=== PATIENT | male | born 1980 | race Caucasian/White ===

== ENCOUNTER 2016-07-18 14:59 | Inpatient (IN) ==
[2016-07-18] MEDS ORDERED: MORPHINE 2 MG/1 ML SYRINGE IV STA (16:20)
[2016-07-18] MEDS ORDERED: ONDANSETRON 4 MG/2 ML VIAL IV STA (16:20)
[2016-07-18] MEDS ORDERED: SODIUM CHLORIDE 0.9% 1,000 ML IV STA (16:20)
[2016-07-18] MEDS ORDERED: MORPHINE 2 MG/1 ML SYRINGE ONE (16:26)
[2016-07-18] MEDS ORDERED: ONDANSETRON 4 MG/2 ML VIAL ONE (16:26)
[2016-07-18 16:36] LABS: Basophils # 0.1 10*3/uL (0.0-0.2); Basophils % 0.4 % (0.0-0.8); Eosinophils # 0.3 10*3/uL (0.0-0.87); Eosinophils % 1.6 % (0.00-10.9); Hematocrit 48.6 VOL% (42.0-52.0); Hemoglobin 17.3 GM/DL (14.0-18.0); Immature Granulocytes % 0.5 %; Immature Granulocytes Absolute 0.09 #; Lymphocytes % 11.4 % (21.2-54.2); Mean Corpuscular HGB Conc 35.6 GM/DL (32-36); Mean Corpuscular Hemoglobin 32 PG (27-34); Mean Corpuscular Volume 88.8 FL (87-102); Mean Platelet Volume 11.6 FL (9.6-12.0); Monocytes % 5.5 % (1.7-12.7); Neutrophils # 14.3 10*3/uL (1.4-7.4); Neutrophils % 80.6 % (38.7-73.9); Platelet Count 235 T/CUMM (130-400); Red Blood Count 5.47 MC/CUMM (3.8-5.5); Red Cell Distribution Width 12.3 % (9.3-17.3); White Blood Count 17.7 T/CUMM (4-12)
[2016-07-18 17:06] LABS: Albumin 4.4 G/DL (3.4-5.0); Bilirubin,Total 0.6 MG/DL (0.2-1.0); Calcium 9.2 MG/DL (8.5-10.1); Osmolality,Calculated 277.5 MOS/KG (273-304); Potassium 4.3 MMOL/L (3.5-5.1)
[2016-07-18 17:29] LABS: Apearance,Urine CLEAR (Clear); Bilirubin,Urine Negative (Negative); Blood, Urine Negative (Negative); Glucose,Urine (UA) Negative (Negative); Hyaline Casts,Urine 2 /LPF (0-3); Ketones,Urine 5 mg/dL (Negative); Mucus,Urine Many /LPF (Occasional); Nitrite,Urine Negative (Negative); Protein,Urine Negative; RBC,Urine 1 /HPF (0-4); Urine Color Yellow (Yellow); Urine Specific Gravity 1.027 (1.001-1.035); Urine Urobilinogen < 2.0 EU/DL (0.2-1.0); WBC,Urine 2 /HPF (0-6)
--- NOTE | 2016-07-18 18:20 | CT Report ---
CT abdomen pelvis Indication: Abdominal pain, epigastric area Comparison: None available Technique: Axial CT imaging of the abdomen and pelvis is performed with intravenous and oral contrast. Contrast dose is 100 cc of Omnipaque 350. Findings: Cardiac and lung bases are within normal limits CT abdomen: The liver spleen pancreas and adrenal glands are normal in size and enhancement. No evidence of focal lesion is demonstrated in these solid organs. Kidneys are normal in size and enhancement. No evidence of hydronephrosis or nephrolithiasis is seen. The bowel caliber is normal and no wall thickening or adjacent inflammatory change is seen. No evidence of free air is present. Small amount of fluid is seen around the appendix. Appendix caliber appears within normal limits at 6.3 mm although there are slight enhancement of the wall. CT pelvis: Small amount of fluid is seen in the pelvis. The pelvic bowel appears within normal limits. Bladder shows no evidence of abnormality. The pelvic organs show no evidence of abnormality Impression: Small amount of fluid in the appendix and the wall enhances slightly. The appendix caliber appears within normal limits. This could represent early appendicitis. This CT exam was performed using one or more the following dose reduction techniques: Automated exposure control, adjustment of the MA and/or KV according to patient size, or use of iterative reconstruction technique. PROCEDURE INTERPRETED AT [facility] DEPARTMENT OF RADIOLOGY Final Report Signed by: Dr. Tang Colon
[2016-07-18] MEDS ORDERED: ONDANSETRON 4 MG/2 ML VIAL IV PRN (18:54)
[2016-07-18] MEDS ORDERED: MORPHINE 2 MG/1 ML SYRINGE IV PRN (18:54)
[2016-07-18] MEDS ORDERED: ACETAMINOPHEN 325 MG TABLET PO PRN (18:54)
--- NOTE | 2016-07-18 19:11 | Emergency Department Note ---
Amaury Gardner Kasabria, am scribing for, and in the presence of, Brigette Light MD 16:31. Kuldeep Gardner Kathryn, MD, personally performed the services described in this documentation, ascribed by Dada Rebolledo in my presence, and it is both accurate and complete 911 . Arrival - Arrival Chief Complaint: Abdominal / Flank Pain Stated Complaint: stomach pain/vomitting ED Nursing Triage Note: C/O HAVING GENERALIZED ABD.PAIN THAT STARTED TODAY AROUND 0630, STATES " FEELS LIKE I ATE RAZOR BLADES", DENIES HAVING INCREASE TEMP.,. + CHILLS., + NASUEA., + VOMITING., + DIARRHEA., LAST MEAL WAS 2030 LAST EVENING Mode of Arrival: Ambulatory Limitations: No Limitations Source: Patient - History of Present Illness HPI Narrative: This is a 36 y/o white male presenting to the ED with c/o nausea, vomiting, abdominal pain, and diarrhea that onset this morning at 0600. Pt states he has never experienced this type of pain before. He described it as feeling like razor blades cutting into his stomach. He has had several episodes of vomiting and diarrhea with the last episode being before he arrived to the ED. Pt's last meal was at 2030 last night. He states he has had increased temperature and chills. Mother states the pt has not seen a primary in over 20 years and is aware of any medical problems that he may have. Consistency: constant Severity: moderate Allergies/Adverse Reactions: Allergies Allergy/AdvReac Type Severity Reaction Status Date / Time No Known Allergies Allergy Unverified 07/18/16 15:05 Review of System - Review of System 12 point system: reviewed and no additional remarkable complaints except as stated - Review of System Constitutional: Present: chills, fever (low grade ) Eyes: Absent: vision change Head/Ears/Nose/Throat: Absent: earache, nasal drainage Respiratory: Absent: cough, wheezing Cardiovascular: Absent: chest pain Gastrointestinal: Present: abdominal pain (epigastric and lower abdominal ), nausea, vomiting, diarrhea. Absent: hematemesis, hematochezia Genitourinary male: Absent: dysuria Musculoskeletal: Absent: arm pain, back pain Skin: Absent: rash Neurological: Absent: headache, weakness, confusion, vertigo Psychiatric: Absent: anxiety Endocrine: Absent: fatigue Hematological/Lymphatic: Absent: easy bleeding Allergic/Immunologic: Absent: facial swelling Medical,Surgical,& Family Hx - Social History Smoking Status: Smoker, status unknown Frequency of Alcohol Use: None Type of Drug Use: Marijuana Exam Vital Signs: Vital Signs Temperature 99.0 F 07/18/16 16:53 Pulse Rate 58 L 07/18/16 16:57 Respiratory Rate 20 07/18/16 16:57 Blood Pressure 141/81 07/18/16 16:57 O2 Sat by Pulse Oximetry 98 07/18/16 16:57 - General General appearance: alert, in no apparent distress - Head Head exam: Present: atraumatic, normocephalic, normal inspection - Eye Eye exam: Present: normal appearance, PERRL, EOMI - ENT ENT exam: Present: normal exam, normal oropharynx, mucous membranes moist, TM's normal bilaterally, normal external ear exam - Neck Neck exam: Present: normal inspection, full ROM, trachea midline. Absent: tenderness - Chest Chest inspection: Present: normal inspection, symmetric chest wall rise. Absent : tenderness - Respiratory Respiratory exam: Present: normal lung sounds bilaterally - Cardiovascular Cardiovascular exam: Present: regular rate, normal rhythm, normal heart sounds - Abdominal Exam Abdominal exam: Present: soft, tenderness (diffuse tenderness; pain is worse in the epigastric region ), normal bowel sounds. Absent: distention, guarding, rebound - Extremities Exam Extremities exam: Present: normal inspection, full ROM, normal capillary refill. Absent: tenderness, pedal edema, calf tenderness - Back Exam Back exam: Present: normal inspection, full ROM. Absent: tenderness - Neurological Exam Neurological exam: Present: alert, oriented X3, CN II-XII intact, normal gait, reflexes normal - Psychiatric Psychiatric exam: Present: normal affect, normal mood - Skin Skin exam: Present: warm, dry, intact, normal color. Absent: rash, diaphoresis Course - Consultations Consultation #1: Will admit to Dr. Valdez of General Surgery for acute appy. Plan for OR in AM. Results - Labs CBC & BMP: 07/18/16 16:23 07/18/16 16:23 - Diagnostic Findings Procedure: CT Abdomen and Pelvis: report reviewed by me (Small amt of fluid in the appendix and the wall enhances slightly. The appendix caliber appears within normal limits. This could represent an early appy.) Disposition Clinical Impression: Acute appendicitis Case discussed with: patient, patient's family Disposition: Still a Patient Condition: Stable Time of Disposition: 18:59
--- NOTE | 2016-07-18 20:02 | General Surg History&Physical ---
Assessment and Plan (1) Acute appendicitis Status: Acute Assessment and plan: Impression: Acute appendicitis Plan: We will admit and start IV antibiotics. Discussed options with the patient had like to proceed with appendectomy. Will plan for laparoscopic appendectomy in the morning. The procedure and how it is performed and the anticipated recovery were discussed. Risks of the procedure including bleeding , infection, damage to surrounding structures, need for further surgery were all discussed in detail and he wants to proceed. Current Visit: Yes History of Present Illness Chief complaint: Abdominal pain History of present illness: Mr. Boles is a 36 year old male awoke this morning at 6 AM with mild periumbilical abdominal pain that has since progressively worsened and migrated to the right lower quadrant. He denies any fever or chills at home. No nausea or vomiting. He denies chest pain shortness of breath or change in bowel habits. Allergies Allergy/AdvReac Type Severity Reaction Status Date / Time No Known Allergies Allergy Unverified 07/18/16 15:05 Medical,Surgical,& Family Hx - Medical History Medical History: noncontributory (Denies any past history) - Social History Smoking Status: Smoker, status unknown Frequency of Alcohol Use: None Type of Drug Use: Marijuana Exam - Constitutional Vitals: Period Temp Pulse Resp BP Sys/Shaffer Pulse Ox Last 24 Hr 63 20 113/63 99 General appearance: no acute distress - Head Head exam: Present: normocephalic - ENT Mouth exam: Present: normal external inspection - Neck Neck exam: Present: normal inspection - Respiratory Respiratory exam: Present: clear to auscultation bilaterally - Cardiovascular Cardiovascular exam: Present: RRR - GI/Abdominal GI/Abdominal exam: Present: soft (Very tender to palpation in the right lower quadrant. No peritoneal signs.) - Extremities Exam Extremities exam: Present: normal inspection - Back Exam Back exam: Present: normal inspection - Neurological Exam Neurological exam: Present: alert, oriented X3 Speech: Present: normal - Skin Skin exam: Present: normal color 12 point system: reviewed and no additional remarkable complaints except as stated Results - Labs CBC & BMP: 07/18/16 16:23 07/18/16 16:23 Lab Results: I have reviewed the past 24 hour labs
[2016-07-18] MEDS: DEXTROSE 5% LACTATED RINGERS 1,000 ML IV SCH (20:40)
[2016-07-18] MEDS: metroNIDAZOLE INJ 500 MG in PREMIX 1 EACH IV SCH (20:57)
[2016-07-18] MEDS: PIPERACILLIN/TAZOBACTAM 3,375 MG in SODIUM CHLORIDE 0.9% 100 ML IV SCH (22:42)
[2016-07-19] MEDS: DEXTROSE 5% LACTATED RINGERS 1,000 ML IV SCH ×2 (03:09→21:40)
[2016-07-19] MEDS: metroNIDAZOLE INJ 500 MG in PREMIX 1 EACH IV SCH ×3 (04:44→21:30)
[2016-07-19] MEDS: PIPERACILLIN/TAZOBACTAM 3,375 MG in SODIUM CHLORIDE 0.9% 100 ML IV SCH ×3 (07:05→23:08)
[2016-07-19] MEDS ORDERED: BUPIVACAINE MPF 0.25% /EPI 30 ML VIAL ONE (08:00)
[2016-07-19] MEDS ORDERED: TISSUE ADHESIVE 1 EACH APPLICATOR TOP ONE (08:00)
[2016-07-19] MEDS ORDERED: LIDOCAINE 1%/EPI INJ 20 ML VIAL ONE (08:00)
[2016-07-19] MEDS: PANTOPRAZOLE 40 MG TABLET PO SCH (08:19)
[2016-07-19] MEDS ORDERED: NEOSTIGMINE 10 MG/10 ML VIAL ONE (08:47)
[2016-07-19] MEDS ORDERED: SUCCINYLCHOLINE 200 MG/10 ML VIAL ONE (08:47)
[2016-07-19] MEDS ORDERED: ROCURONIUM 100 MG/10 ML VIAL IV ONE (08:47)
[2016-07-19] MEDS ORDERED: PROPOFOL 200 MG/20 ML VIAL IV ONE (08:47)
[2016-07-19] MEDS ORDERED: GLYCOPYRROLATE 0.4 MG/2 ML VIAL ONE (08:47)
[2016-07-19] MEDS ORDERED: ONDANSETRON 4 MG/2 ML VIAL ONE ×2 (08:47→10:34)
[2016-07-19] MEDS ORDERED: KETOROLAC 30 MG/1 ML VIAL ONE (08:47)
[2016-07-19] MEDS ORDERED: LIDOCAINE 100 MG/5 ML SYRINGE ONE (08:47)
[2016-07-19] MEDS ORDERED: SUGAMMADEX 200 MG/2 ML VIAL IV ONE (09:34)
[2016-07-19] MEDS ORDERED: fentaNYL 100 MCG/2 ML VIAL ONE (09:53)
[2016-07-19] MEDS ORDERED: DESFLURANE 1 UNIT/15 MINUTE INH ONE (09:53)
[2016-07-19] MEDS ORDERED: MIDAZOLAM 2 MG/2 ML VIAL ONE (09:53)
[2016-07-19] MEDS ORDERED: ACETAMINOPHEN 1,000 MG/100 ML VIAL IV ONE (09:54)
[2016-07-19] MEDS ORDERED: ONDANSETRON 4 MG/2 ML VIAL IV PRN (09:58)
[2016-07-19] MEDS ORDERED: HYDROmorphone 2 MG/1 ML VIAL IV PRN (09:58)
[2016-07-19] MEDS ORDERED: LACTATED RINGERS 1,000 ML IV SCH (10:00)
--- NOTE | 2016-07-19 10:41 | Anesthesia Post-Op ---
Anesthesia Post OP - Post Ansesthetic Evaluation Patient seen in post op: Yes Resp: within normal limits CV: within normal limits Mental: within normal limits Temp: within normal limits [id number]: within normal limits Nausea and Vomiting: within normal limits Pain: within normal limits
--- NOTE | 2016-07-19 11:14 | Operative Note ---
Date of procedure: 07/19/16 Pre-op diagnosis: Early acute appendicitis Post-op diagnosis: same (Hyperemic appearance of the appendix) Procedure: Procedure performed: Laparoscopic appendectomy Procedure in detail: After informed consent was obtained, patient was taken operating suite placed upon the operating table. After general anesthesia induced Montero catheter placed and abdomen was prepped and draped in usual sterile fashion. After procedural pause local anesthetic infiltrated skin and subcutaneous tissue above the umbilicus. Incision was made and dissection carried down through skin and soft tissue. Fascia grasped with Haskins's and elevated. Fascial incision was made. Abdominal cavity was entered bluntly. Finger sweep revealed no adhesions. White trocar placed under direct visualization. Pneumoperitoneum achieved. The camera inserted bowel mesentery inspected and found to be free of any violation. Patient was placed in Trendelenburg position rotated to the left. Suprapubic and left lower quadrant 5 mm trochars were placed under visualization. Camera was moved to the left lower quadrant in the right lower quadrant a nondilated appendix was identified. It was mildly hyperemic. There was no separation or any significant inflammation seen. A window was created at the base of the appendix and the appendiceal base transected using NEGRA stapling device with vascular load. Mesoappendix was transected in the same fashion. The appendix was placed in an Endo Catch sac and removed to the White trocar site. Pneumoperitoneum reachieved. The right lower quadrant thoroughly irrigated and suctioned. Staple lines inspected found to be intact no leakage of bilious or sinus fluid. There is some mild yellowish tinged fluid in the pelvis that was suctioned. I inspected the colon and small bowel in the right lower quadrant and found no abnormality. There was no migration of omentum or any adhesion. The trochars were removed as the abdomen desufflated. Fascia at the White trocar site closed using 0 Vicryl [id number] interrupted suture. Wounds were thoroughly irrigated and suctioned. Incision closed with sudeep. Sterile dressings applied. Patient was extubated and taken recovery in stable condition. All lap and needle counts were correct at the end of the case. Anesthesia: GETA Surgeon / Physician: Jemal Valdez Estimated blood loss: other (Less than 10 cc) Specimens: other (Appendix) Condition: stable Disposition: PACU Results - Labs CBC & BMP: 07/18/16 16:23 07/18/16 16:23 Discharge Plan - Discharge Medications No Action No Known Home Medications [No Known Home Medications] - Follow Up or Referral - Forms/Instructions
--- NOTE | 2016-07-19 15:44 | Event Note ---
POC s/p laparoscopic appendectomy. Pt tolerated clears without difficulty - reports he is hungry. No CP, palps, SOB, wheeze, cough or N/V. Pain adequately controlled. Pt has voided and ambulated. No specific complaints at this time. O: VSS Head: atraumatic/normocephalic Heart: RRR Lungs: CTAB Abd: dressings c/d/i. Abd soft and appropriately tender p/o. No distension. BS present Ext: calves soft/NT. No pedal edema noted. A/P Stable POD #0. Encouraged mobilization. Advance diet as tolerated. Repeat CBC in am. DVT ppx: SCD and leonardo hose in place. Hold on lovenox as pt is immediately post op. GI ppx: PPI daily.
[2016-07-20] MEDS: DEXTROSE 5% LACTATED RINGERS 1,000 ML IV SCH ×2 (01:31→03:17)
[2016-07-20] MEDS: metroNIDAZOLE INJ 500 MG in PREMIX 1 EACH IV SCH (05:02)
[2016-07-20] MEDS: PIPERACILLIN/TAZOBACTAM 3,375 MG in SODIUM CHLORIDE 0.9% 100 ML IV SCH (06:24)
[2016-07-20 08:31] LABS: Basophils # 0.1 10*3/uL (0.0-0.2); Basophils % 0.7 % (0.0-0.8); Eosinophils # 0.5 10*3/uL (0.0-0.87); Eosinophils % 4.5 % (0.00-10.9); Hematocrit 39.5 VOL% (42.0-52.0); Immature Granulocytes % 0.6 %; Immature Granulocytes Absolute 0.06 #; Lymphocytes # 2.7 10*3/uL (1.4-4.0); Mean Corpuscular HGB Conc 35.4 GM/DL (32-36); Mean Corpuscular Hemoglobin 32 PG (27-34); Mean Corpuscular Volume 91.4 FL (87-102); Mean Platelet Volume 11.4 FL (9.6-12.0); Monocytes # 0.7 10*3/uL (0.11-0.8); Monocytes % 6.7 % (1.7-12.7); Neutrophils # 6.7 10*3/uL (1.4-7.4); Neutrophils % 62.5 % (38.7-73.9); Platelet Count 201 T/CUMM (130-400); Red Cell Distribution Width 12.5 % (9.3-17.3)
[2016-07-20 08:35] LABS: Red Blood Count 4.32 MC/CUMM (3.8-5.5); White Blood Count 10.8 T/CUMM (4-12)
[2016-07-20] MEDS: PANTOPRAZOLE 40 MG TABLET PO SCH (08:47)
--- NOTE | 2016-07-20 10:27 | Event Note ---
POD #1 s/p laparoscopic appendectomy. Pt reports gas pain without passing flatus yet; no N/V. Tolerating PO intake. No fever, chills, chest pain, SOB, wheeze or cough. Pt is ambulating. Voiding without difficulty. VSS Head atraumatic Lungs CTAB Heart RRR Abd Soft with appropriate p/o tenderness. Dressings c/d/i. BS present. Ext calves soft and NT without edema Labs: leukocytosis resolved A/P Stable POD #1. Can d/c home today once flatus passes. F/u Dr. Valdez 2 wk. Continue IS and SCD for DVT ppx.
[2016-07-20 11:45] VITALS: BP 128/70
--- NOTE | 2016-07-20 12:41 | Discharge Summary ---
Hospital Course - Hospital Course Hospital Course: Patient underwent laparoscopic appendectomy for acute appendicitis. Progressed well - tolerating oral intake, activity and voiding without difficulty. No complications to note. F/u Dr. Valdez 2 wk. Diagnosis - Discharge Diagnosis (1) Nicotine dependence Status: Acute (2) Acute appendicitis Status: Acute Specialty Discharge - Follow Up or Referrals Follow up with: Jemal Valdez MD [Physician] - 08/03/16 9:30 am (1-2 weeks) Discharge Plan - Discharge Data Disposition: Disch To Home/Self Care Condition at Discharge: Stable Discharge Diet: advance to your usual diet Activity: no lifting (>10 lb) Hygiene: may shower (starting POD #2. Do not soak, submerge or aggressively rub wound) Driving: other (While taking narcotics) Contact your physician if you experience:: fever over 101, Difficulty voiding, Redness or swelling, Nausea/Vomiting, Shortness of breath, Bleeding, pain uncontrolled by pain medications Wound / Dressing Care Instructions: Keep wounds clean and dry. - Discharge Medications New Docusate Sodium 100 mg PO BID PRN #20 capsule PRN Reason: Constipation HYDROcodone/ACETAMIN 7.5-325 [[place] 7.5-325] 1 tablet PO Q4H PRN #30 tablet PRN Reason: Pain Moderate To Severe (4-10) - Follow Up or Referral Follow Up: Jemal Valdez MD [Physician] - 08/03/16 9:30 am (1-2 weeks) - Forms/Instructions Instructions: Appendicitis (DC), Laparoscopic Appendectomy (DC), How to Stop Smoking (DC) Exam - Constitutional Vitals: Period Temp Pulse Resp BP Sys/Shaffer Pulse Ox Last 24 Hr 98.1 F-98.9 F 54-69 16-20 110-150/60-78 97-99 Discharge Results Procedures and tests throughout hospitalization: 1. Laparoscopic appendectomy 2. Pathology: nonacute appendix; hemorrhagic with congestion. See report. Labs on day of discharge: Labs from last 24 hours 07/20/16 08:26 WBC 10.8 D RBC 4.32 D Hgb 14.0 D Hct 39.5 L MCV 91.4 MCH 32 MCHC 35.4 RDW 12.5 Plt Count 201 MPV 11.4 Neut % (Auto) 62.5 Lymph % (Auto) 25.0 [facility] % (Auto) 6.7 Eos % (Auto) 4.5 Baso % (Auto) 0.7 Neut # (Auto) 6.7 Lymph # (Auto) 2.7 [facility] # (Auto) 0.7 Eos # (Auto) 0.5 Baso # (Auto) 0.1 Immature Gran % 0.6 Nucleated RBC % 0.0 Immature Gran # 0.06 Nucleated RBCs # 0.00 - Imaging and Cardiology Procedure: CT Abdomen and Pelvis: image reviewed by me, report reviewed by me DS: Provider Date of admission: 07/18/16 18:54 Primary care physician: . No PCP Attending physician on admission: Jemal Valdez MD Consults: None Discharging clinician: Cammie Alan PA-C
== END 2016-07-20 13:33 | disposition home or self-care (01) | DRG 343 ==
LOC: N.ED 14:59 → N.EDINP 18:54 → N.3E 20:35
PROVIDERS: ADMIT Surgery; ATTEND Surgery